=== PATIENT | male | born 1965 | race Two or more races ===

== ENCOUNTER 2025-07-22 15:18 | Inpatient (IN) | payer MEDICAID, OTHER ==
[~2025-07-22] VITALS: Ht 160 cm; Wt 73.9 kg
[~2025-07-22 15:18] MED LIST: MET25T PO
[2025-07-22 17:31] LABS: Hematocrit 46.0 % (41.0-53.0); Hemoglobin 16.2 g/dL (13.5-17.5); Mean Corpuscular Hemoglobin 34.4 pg (28.0-32.0); Mean Corpuscular Volume 97.4 fL (80.0-100.0); Nucleated Red Blood Cells % 0.0 %
--- NOTE | 2025-07-22 17:33 | ED.PDOC ---
GI ASSESSMENT HPI Comments 60 y/o M, presents to the ED for CC of abdominal pain. Patient states, he has been experiencing diffuse abdominal pain with associated bloody stools x3days. Patient denies faintness, weakness, nausea, or vomiting. Chief Complaint: Abdominal Pain Time Seen by MD: 17:20 Reviewed Notes: Nurses Notes, Medications, Allergies Allergies: Coded Allergies: NO KNOWN ALLERGIES (Unverified , 07/22/25) Information Source: Patient Mode of Arrival: Ambulatory Timing: Days Duration: Since onset Prehospital treatment: None Quality: None Vomitus: None Stool: Blood Streaked Severity: Moderate Recent: None Recent Hx of: None Pain Location: Diffuse Modifying Factors: Nothing Associated sign and symptoms: Abdominal Pain, Blood in Stool Past Medical History PAST MEDICAL HISTORY: Denies Surgical History: Denies all surgeries Family History Family History: Unknown Social History Smoker: Non-Smoker Alcohol: Denies ETOH Use Drugs: Denies Drug Use Lives In: Home Constitutional: denies: chills, diaphoresis, fatigue, fever, malaise, sweats, weakness, others EENTM: denies: blurred vision, double vision, ear bleeding, ear discharge, ear drainage, ear pain, ear ringing, eye pain, eye redness, hearing loss, mouth pain, mouth swelling, nasal discharge, nose bleeding, nose congestion, nose pain, photophobia, tearing, throat pain, throat swelling, voice changes, others Respiratory: denies: cough, hemoptysis, orthopnea, SOB at rest, shortness of breath, SOB with excertion, stridor, wheezing, others Cardiovascular: denies: chest pain, dizzy spells, diaphoresis, Dyspnea on exertion, edema, irregular heart beat, left arm pain, lightheadedness, palpitations, PND, syncope, others Gastrointestinal: reports: abdominal pain, others (bloody stools); denies: abdomen distended, blood streaked bowels, constipated, diarrhea, dysphagia, difficulty swallowing, hematemesis, melena, nausea, poor appetite, poor fluid intake, rectal bleeding, rectal pain, vomiting Genitourinary: denies: burning, dysuria, flank pain, frequency, hematuria, incontinence, penile discharge, penile sore, pain, testicle pain, testicle swelling, urgency, others Neurological: denies: dizziness, fainting, headache, left sided numbness, left sided weakness, numbness, paresthesia, pre-existing deficit, right sided numbness, right sided weakness, seizure, speech problems, tingling, tremors, weakness, others Musculoskeletal: denies: back pain, gout, joint pain, joint swelling, muscle pain, muscle stiffness, neck pain, others Integumetry: denies: bruises, change in color, change in hair/nails, dryness, laceration, lesions, lumps, rash, wounds, others Allergic/Immunocompromised: denies: Difficulty Healing, Frequent Infections, Hives, Itching, others Hematologic/Lymphatic: denies: anemia, blood clots, easy bleeding, easy bruising, swollen glands, others Endocrine: denies: excessive hunger, excessive sweating, excessive thirst, excessive urination, flushing, intolerance to cold, intolerance to heat, unexplained weight gain, unexplained weight loss, others Psychiatric: denies: anxiety, bipolar disorder, depression, hopeless, panic disorder, schizophrenia, sleepless, suicidal, others All Other Systems: Reviewed and Negative Physical Exam General Appearance: Moderate Distress HEENT: Normal ENT Inspection, Pharynx Normal, TMs Normal Neck: Full Range of Motion, Non-Tender, Normal, Normal Inspection Respiratory: Chest Non-Tender, Lungs Clear, No Accessory Muscle Use, No Respiratory Distress, Normal Breath Sounds Cardiovascular: No Edema, No JVD, No Murmur, No Gallop, Normal Peripheral Pulses, Regular Rate/Rhythm Breast Exam: Deferred Gastrointestinal: Distended Genitalia: Deferred Pelvic: Deferred Rectal: Deferred Extremities: No calf tenderness, Normal capillary refill, Normal inspection, Normal range of motion, Non-tender, No pedal edema Musculoskeletal : Apperance: Normal Neurologic: Alert, skip hoist engineer II-XII nml as Tested, No Motor Deficits, Normal Affect, Normal Mood, No Sensory Deficits Cerebellar Function: Normal Reflexes: Normal Skin: Dry, Normal Color, Warm Peripheral Pulses: 3+ Radial (R), 3+ Radial (L) Lymphatic: No Adenopathy Was a procedure done? Was a procedure done?: No GI differential Dx Differential Diagnosis: Constipation, Diverticular disease, Esophagitis, Gastritis/PUD, Gastroenteritis, GI hemorrhage, Inflammatory BD X-Ray, Labs, Meds, VS Vital Signs Date Time Temp Pulse Resp B/P (MAP) Pulse Ox O2 Delivery O2 Flow Rate FiO2 07/22/25 15:19 98.1 58 18 171/95 97 98.1 Lab Test 07/22/25 17:03 Range/Units White Blood Count 7.6 4.4-10.8 10^3/uL Red Blood Count 4.72 4.5-5.90 10^6/uL Hemoglobin 16.2 13.5-17.5 g/dL Hematocrit 46.0 41.0-53.0 % Mean Corpuscular Volume 97.4 80.0-100.0 fL Mean Corpuscular Hemoglobin 34.4 H 28.0-32.0 pg Mean Corpuscular Hemoglobin Concent 35.3 32.0-36.0 g/dL Red Cell Distribution Width 14.0 11.8-14.3 % Platelet Count 283 140-450 10^3/uL Mean Platelet Volume 8.0 6.9-10.8 fL Neutrophils (%) (Auto) 46.5 37.0-80.0 % Lymphocytes (%) (Auto) 37.7 10.0-50.0 % Monocytes (%) (Auto) 11.2 0.0-12.0 % Eosinophils (%) (Auto) 4.0 0.0-7.0 % Basophils (%) (Auto) 0.6 0.0-2.0 % Neutrophils # (Auto) 3.5 1.6-8.6 10 ^3/uL Lymphocytes # (Auto) 2.9 0.4-5.4 10 ^3/uL Monocytes # (Auto) 0.9 0-1.3 10 ^3/uL Eosinophils # (Auto) 0.3 0-0.8 10 ^3/uL Basophils # (Auto) 0 0-0.2 10 ^3/uL Nucleated Red Blood Cells 0.0 % Sodium Level Pending Potassium Level Pending Chloride Level Pending Carbon Dioxide Level Pending Anion Gap Pending Blood Urea Nitrogen Pending Creatinine Pending Glomerular Filtration Rate Calc Pending BUN/Creatinine Ratio Pending Serum Glucose Pending Calcium Level Pending Total Bilirubin Pending Aspartate Amino Transferase (AST) Pending Alanine Aminotransferase (ALT) Pending Alkaline Phosphatase Pending Total Protein Pending Albumin Pending Lipase Pending Patient alert. Complaining of abdominal pain. Vitals stable. Answering questions. States that he has been having blood in his stool. On examination he does have abdominal tenderness. WBC within normal limits. Hemoglobin within normal limits. Explained to the patient. Continue monitoring. Time of 1ST Reevaluation: 17:50 Reevaluation 1ST: Unchanged Patient Education/Counseling: Diagnosis, Treatment Family Education/Counseling: No Family Present SEPSIS Sepsis Screen Date sepsis recognized/suspect: Jul 22, 2025 Time Sepsis recognized/suspect: 1518 Recent Procedure: No On Antibiotic Therapy: No Respiratory Rate >20: No Heart Rate >90: No Temp<36 C (96.8 F) or >38.3 C: No SBP <90 or MAP <65 mmHG: No New Acute Mental Status Change: No Is the patient on CPAP, BIPAP,: No Physician Orders Comprehensive Metabolic Panel (07/22/25 16:49) Lipase (07/22/25 16:49) Urinalysis (07/22/25 16:49) Ct Ab Pel Wo Con-No Oral Or Iv (07/22/25 16:49) Vital Signs Date Time Temp Pulse Resp B/P (MAP) Pulse Ox O2 Delivery O2 Flow Rate FiO2 07/22/25 15:19 98.1 58 18 171/95 97 98.1 Laboratory Tests Test 07/22/25 17:03 White Blood Count 7.6 10^3/uL (4.4-10.8) Departure 1 Departure Time of Disposition: 17:38 Impression: Primary Impression: Acute abdominal pain Additional Impression: Non-specific colitis Disposition: ADMITTED INPATIENT Admit to: Med Surg Condition: Guarded Critical Care Note Critical Care Time?: No Stability Stability form required: No Heart Score Heart Score: Heart Score Response (Comments) Value History N/A 0 EKG N/A 0 Age N/A 0 Risk Factors N/A 0 Troponin N/A 0 Total 0 I personally scribed for MARCOS DAVALOS MD ([email or web address]) on 07/22/25 at 17:33. Electronically submitted by Whit Tucker [email or web address]). MARCOS DAVALOS MD Jul 22, 2025 17:33
[2025-07-22 17:48] LABS: Alanine Aminotransferase 36 U/L (7-40); Albumin 4.4 g/dL (3.2-4.8); Alkaline Phosphatase 98 U/L (46-116); Anion Gap 10 (5-15); BUN/Creatinine Ratio 14.6 (10.0-20.0); Blood Urea Nitrogen 15 mg/dL (9-23); Calcium 9.2 mg/dL (8.7-10.4); Carbon Dioxide 23 mmol/L (20-31); Chloride 105 mmol/L (98-107); Glucose 216 mg/dL (74-106); Lipase 55 U/L (12-53); Potassium 3.9 mmol/L (3.5-5.1); Sodium 138 mmol/L (136-145); Total Protein 7.5 g/dL (5.7-8.2)
[2025-07-22 17:49] LABS: Bilirubin, Total 1.1 mg/dL (0.2-1.0)
--- NOTE | 2025-07-22 17:49 | DVH ---
EXAM: CT CT AB PEL WO CON-NO ORAL OR IV History: colitis Comparison Study: None TECHNIQUE: Multidetector CT of the abdomen was performed from lung bases to pubic symphysis. Imaging was performed without IV contrast. Axial, coronal and sagittal multiplanar reformats were obtained from the axial data set by the technologist. Radiation Dose Information: CT Dose: CTDI volume is 9.4 mGy. Dose-length product is 513 mGy*cm FINDINGS: Evaluation of solid organs is limited due to lack of intravenous contrast use. FINDINGS: Lung Bases: No acute or significant lung base finding. Normal heart size. No pleural or pericardial effusion. Liver: The liver is normal in size. No focal lesions. Gallbladder and Biliary Tree: Unremarkable Spleen: Unremarkable Pancreas: The pancreas is grossly normal in appearance. Adrenal Glands: Unremarkable Kidneys: There is either a 1 cm right-sided renal vascular calcification or an nonobstructing calculus present. Bladder: Grossly unremarkable for degree of distention. Bowel: The stomach is grossly normal in appearance. Small bowel and colon are normal in caliber and distribution. The appendix is not visualized; however, no secondary findings of acute appendicitis identified. Ascites: Absent Lymphadenopathy: No mesenteric, retroperitoneal or periportal lymphadenopathy. Abdominal Wall and Mesentery: Unremarkable. Vasculature: The visualized abdominal aorta is normal in size and caliber. Evaluation of abdominal and pelvic vessels is limited due to lack of intravenous contrast. Pelvic Organs: Unremarkable Musculoskeletal: No aggressive focal bony lesions, acute fractures or dislocation. Soft tissues: Unremarkable IMPRESSION: 1. No acute intra-abdominal or pelvic disease. 2. There is either a 1 cm right-sided renal vascular calcification or a nonobstructing calculus. 3. Radiation optimization: All CT scans at this facility use at least one of these dose optimization techniques: automated exposure control mA and/or kV adjustment per patient size (includes targeted exams where dose is matched to clinical indication) or iterative reconstruction.
[2025-07-22 18:02] LABS: Urine Protein, UAD Negative (Negative)
[2025-07-22] MEDS: ONDANSETRON HCL 4 MG/2 ML VIAL IV ONE (18:54)
[2025-07-22] MEDS: MORPHINE SULFATE 4 MG/ML SYR/VIAL IV ONE (18:54)
[2025-07-22] MEDS ORDERED: ONDANSETRON HCL 4 MG/2 ML VIAL IV PRN (22:45)
--- NOTE | 2025-07-22 23:02 | DVH ---
CHEST RADIOGRAPH INDICATION: chest pain TECHNIQUE: Single frontal view of the chest was obtained COMPARISON: None FINDINGS: Lines and Tubes: None Lungs: Hazy density left lower lung field may represent a lingular airspace disease consider lateral chest firm film for further evaluation or CT chest. Pleura: No effusion. No pneumothorax. Cardiomediastinal contours: Unremarkable Bones: No acute osseous abnormality. IMPRESSION: 1. Increased density left lower lung field with some silhouetting of the left heart border. May represent lingular infiltrate. If consistent with clinical setting and patient's symptomatology consider lateral chest film or CT of the chest for further evaluation.
[2025-07-22 23:26] LABS: INR 0.95 (0.9-1.15); Partial Thromboplastin Time 28.5 SEC (24.5-34.5); Prothrombin Time 10.1 sec (9.3-11.8)
[2025-07-22 23:37] LABS: Amphetamine Screen, Urine Neg (NEGATIVE); Barbiturate Scree,Urine Neg (NEGATIVE); Benzodiazephine Screen, Urine Neg (NEGATIVE)
[2025-07-22 23:38] LABS: Cannabinoid Screen, Urine Pos (NEGATIVE); Cocaine Screen, Urine Neg (NEGATIVE); Opiate Scree,Urine Neg (NEGATIVE); Phencyclidine Screen, Urine Neg (NEGATIVE)
[2025-07-23] VITALS (8 sets, daily range): BP systolic 118–144; BP diastolic 70–83; PULSE 54–68; RESP 18–20; TEMP 97.4–98.6; O2SAT 96–98
--- NOTE | 2025-07-23 01:04 | DVHHPRES ---
History of Present Illness Resident Creating Document: JOE RANDOLPH RESIDENT History of Present Illness Patient is a 60-year-old male with past medical history of diabetes mellitus, hypertension, peptic ulcer disease, [place] status post 2 stents, CVA in April who came to the ED with chief complaints of diffuse abdominal pain which is 8/10 in intensity, nonradiating, increased with food intake, associated with increased burping Since 15 days and bright red blood in stool since 3 days. Patient denies any nausea, vomiting, diarrhea, constipation. Patient also complained of chest pain which she described as 8/10 in intensity, nonradiating, reproducible on palpation, associated with shortness of Breath which is on and off. patient says he uses 3 pillows to sleep. He also states that he has had a colonoscopy done last year for which 1 polyp was removed and was negative for cancer. Past surgical history: Denies Family history: Reviewed, noncontributory Personal history: Denies smoking, drinking, uses marijuana occasionally, lives with family home medications : amlodipine, aspirin, Plavix, metformin, metoprolol succinate, pantoprazole, rosuvastatin Allergic history: Denies Patient seen at bedside. Patient complains of reproducible chest pain, diffuse abdominal pain mostly in the left lower quadrant, nausea. Bedside ultrasound was performed. Review of Systems Constitutional: No: Fever, Chills, Sweats, Weakness, Malaise, Other Eyes: No: Pain, Vision change, Conjunctivae inflammation, Eyelid inflammation, Other, Redness ENT: No: Ear pain, Ear discharge, Nose pain, Nose discharge, Nose congestion, Mouth pain, Mouth swelling, Throat pain, Throat swelling, Other Respiratory: Shortness of breath; No: Cough, Dry, SOB with excertion, Wheezing, Hemoptysis, Pleuritic Pain, Sputum, Wheezing, Other Cardiovascular: Chest Pain; No: Palpitations, Orthopnea, Paroxysmal Noc. Dyspnea, Edema, Lt Headedness, Other Gastrointestinal: Nausea, Abdominal Pain; No: Vomiting, Diarrhea, Constipation, Melena, Hematochezia, Other Genitourinary: No Dysuria, No Frequency, No Incontinence, No Hematuria, No Retention, No Other Musculoskeletal: No: other, neck pain, shoulder pain, arm pain, back pain, hand pain, leg pain, foot pain Skin: No: Rash, Lesions, Jaundice, Bruising, Other Neurological: No: Weakness, Numbness, Incoordination, Change in speech, Confus ion, Seizures, Other Allergies: Coded Allergies: NO KNOWN ALLERGIES (Unverified , 07/22/25) Medications Current Medications Medications Dose Ordered Sig/Sarai Route Start Time Stop Time Status Last Admin Dose Admin Ondansetron HCl 4 mg Q4HP PRN IV 07/22/25 22:45 Enoxaparin Sodium 40 mg DAILY SC 07/23/25 10:00 Acetaminophen 650 mg Q6HR PO 07/23/25 00:00 Exam Vital Signs Vital Signs Date Time Temp Pulse Resp B/P (MAP) Pulse Ox O2 Delivery O2 Flow Rate FiO2 07/22/25 22:28 51 07/22/25 18:54 18 149/103 07/22/25 18:33 97.3 97 97.3 Exam General Appearance: Alert, Oriented X3, Cooperative, No acute distress HEENT: Atraumatic, PERRLA, EOMI, Mucous membrane moist/pink Respiratory: Clear to auscultation, Normal air movement Cardiovascular: Regular rate, Normal S1, Normal S2, No murmurs, chest wall tenderness present on palpation Abdominal: diffuse abdominal tenderness, more on the right lower quadrant Extremities: trace bilateral pedal edema Skin: No rashes, No breakdown, No significant lesion Neuro: Normal gait, Normal speech, Strength at 5/5 X4 ext, Normal tone, Sensation intact, Cranial nerves 3-12 NL, Reflexes 2+ Psych/Mental Status: Mental status NL, Mood NL Labs/Xrays Labs Test 07/23/25 00:24 07/22/25 21:56 07/22/25 17:13 07/22/25 17:12 Range/Units Prothrombin Time 10.1 9.3-11.8 sec Prothrombin Time INR 0.95 0.9-1.15 Activated Partial Thromboplast Time 28.5 24.5-34.5 SEC B-Type Natriuretic Peptide 12.32 0-100 pg/mL Thyroid Stimulating Hormone (TSH) 2.80 0.55-4.78 uIU/mL Urine Opiates Screen Neg NEGATIVE Urine Fentanyl Screen Neg NEGATIVE Urine Barbiturates Screen Neg NEGATIVE Urine Phencyclidine Screen Neg NEGATIVE Urine Amphetamines Screen Neg NEGATIVE Urine Benzodiazepines Screen Neg NEGATIVE Urine Cocaine Screen Neg NEGATIVE Urine Cannabinoids Screen Pos NEGATIVE Urine Color Yellow Yellow Urine Clarity Clear Clear Urine pH 5.5 5.0-9.0 Urine Specific [place] 1.024 1.001-1.035 Urine Protein Negative Negative Urine Ketones Negative Negative Urine Blood 1+ H Negative /uL Urine Nitrite Negative Negative Urine Bilirubin Negative Negative Urine Urobilinogen Normal Negative mg/dL Urine Leukocyte Esterase Negative Negative /uL Urine RBC <1 0 - 3 /hpf Urine Microscopic WBC < 1 0-3 /HPF Urine Squamous Epithelial Cells Few <5 /hpf Urine Bacteria None seen None Seen /hpf Urine Mucus Few None Seen Urine Glucose 3+ H Normal mg/dL Test 07/22/25 17:03 Range/Units White Blood Count 7.6 4.4-10.8 10^3/uL Red Blood Count 4.72 4.5-5.90 10^6/uL Hemoglobin 16.2 13.5-17.5 g/dL Hematocrit 46.0 41.0-53.0 % Mean Corpuscular Volume 97.4 80.0-100.0 fL Mean Corpuscular Hemoglobin 34.4 H 28.0-32.0 pg Mean Corpuscular Hemoglobin Concent 35.3 32.0-36.0 g/dL Red Cell Distribution Width 14.0 11.8-14.3 % Platelet Count 283 140-450 10^3/uL Mean Platelet Volume 8.0 6.9-10.8 fL Neutrophils (%) (Auto) 46.5 37.0-80.0 % Lymphocytes (%) (Auto) 37.7 10.0-50.0 % Monocytes (%) (Auto) 11.2 0.0-12.0 % Eosinophils (%) (Auto) 4.0 0.0-7.0 % Basophils (%) (Auto) 0.6 0.0-2.0 % Neutrophils # (Auto) 3.5 1.6-8.6 10 ^3/uL Lymphocytes # (Auto) 2.9 0.4-5.4 10 ^3/uL Monocytes # (Auto) 0.9 0-1.3 10 ^3/uL Eosinophils # (Auto) 0.3 0-0.8 10 ^3/uL Basophils # (Auto) 0 0-0.2 10 ^3/uL Nucleated Red Blood Cells 0.0 % Sodium Level 138 136-145 mmol/L Potassium Level 3.9 3.5-5.1 mmol/L Chloride Level 105 98-107 mmol/L Carbon Dioxide Level 23 20-31 mmol/L Anion Gap 10 5-15 Blood Urea Nitrogen 15 9-23 mg/dL Creatinine 1.03 0.700-1.30 mg/dL Glomerular Filtration Rate Calc 82 >90 mL/min BUN/Creatinine Ratio 14.6 10.0-20.0 Serum Glucose 216 H 74-106 mg/dL Calcium Level 9.2 8.7-10.4 mg/dL Total Bilirubin 1.1 H 0.2-1.0 mg/dL Aspartate Amino Transferase (AST) 24 13-40 U/L Alanine Aminotransferase (ALT) 36 7-40 U/L Alkaline Phosphatase 98 46-116 U/L Total Protein 7.5 5.7-8.2 g/dL Albumin 4.4 3.2-4.8 g/dL Lipase 55 H 12-53 U/L SEPSIS Sepsis Screen Date sepsis recognized/suspect: Jul 22, 2025 Time Sepsis recognized/suspect: 1518 Recent Procedure: No On Antibiotic Therapy: No Respiratory Rate >20: No Heart Rate >90: No Temp<36 C (96.8 F) or >38.3 C: No SBP <90 or MAP <65 mmHG: No New Acute Mental Status Change: No Is the patient on CPAP, BIPAP,: No Physician Orders Ct Ab Pel Wo Con-No Oral Or Iv (07/22/25 16:49) Electrocardigram (07/22/25 21:49) Troponin-I Hs (07/23/25 00:49) Point Of Care Scan (07/22/25 21:59) Admit (07/22/25 22:36) Ondansetron Hcl (Zofran) (07/22/25 22:45) Enoxaparin Sodium (Lovenox) (07/23/25 10:00) Complete Blood Count (07/23/25 04:00) Comprehensive Metabolic Panel (07/23/25 04:00) Cardiac Diet-2gna,Lofat,Lochol (07/23/25 Breakfast) Echo 2d Mode Cardiac Dop (07/22/25 22:36) Condition: Serious (07/22/25 22:36) Acetaminophen Tablet (Tylenol Tablet) (07/23/25 00:00) Bedrest With Bathroom Privileg (07/22/25 22:36) Oxygen By Nasal Cannula (07/22/25 22:36) Stat Ekg For Chest Pain (07/22/25 22:36) Notify Md Of Changes From Base (07/22/25 22:36) Condominium Manager For 24 Hours (07/22/25 22:36) Emergency Dysrhythmia Protocol (07/22/25 22:36) Rhythm Strips Once Every Shift (07/22/25 22:36) Chest Xray 1 View (07/22/25 22:36) Stool Occult Blood (07/22/25 22:41) Vital Signs Date Time Temp Pulse Resp B/P (MAP) Pulse Ox O2 Delivery O2 Flow Rate FiO2 07/22/25 22:28 51 07/22/25 18:54 79 18 149/103 07/22/25 18:33 97.3 84 16 148/113 (125) 97 97.3 Laboratory Tests Test 07/22/25 17:03 White Blood Count 7.6 10^3/uL (4.4-10.8) Medications Medications Dose Ordered Sig/Sarai Route Start Time Stop Time Status Last Admin Dose Admin Morphine Sulfate 4 mg ONCE ONCE IV 07/22/25 17:00 07/22/25 17:01 DC 07/22/25 18:54 4 MG Ondansetron HCl 4 mg ONCE ONCE IV 07/22/25 17:00 07/22/25 17:01 DC 07/22/25 18:54 4 MG Assessment/Plan Assessment/Plan Intractable abdominal pain due to gastritis Chest pain likely musculoskeletal ? Heart failure - abdominal CT scan showed No acute intra-abdominal or pelvic disease. There is either a 1 cm right-sided renal vascular calcification or a nonobstructing calculus. - IV fluids - check stool occult blood - check echo - EKG showed sinus bradycardia Diabetes mellitus Lantus 10, mild insulin sliding scale Hypertension -resume home meds Dyslipidemia -resume home med Cannabinoid use disorder Patient counseled on cessation of marijuana for 18 minutes Morbid obesity BMI 28.8 Patient counseled on lifestyle modifications, diet, exercise for 18 minutes PPI prophylaxis: Protonix DVT prophylaxis: Lovenox Diet: Cardiac diet Goals of care discussed with patient for 27 mins: Full code Case discussed with Dr. Manjarrez Plan discussed with: Patient My Orders Orders - JOE RANDOLPH RESIDENT Procedure Category Date Status Time Admit ADMIT 07/22/25 Transmitted 22:36 Ondansetron Hcl PHA 07/22/25 In Process (Zofran) 22:45 Enoxaparin Sodium PHA 07/23/25 In Process (Lovenox) 10:00 Complete Blood Count LAB 07/23/25 Logged 04:00 Comprehensive LAB 07/23/25 Logged Metabolic Panel 04:00 Cardiac DIET 07/23/25 Transmitted Diet-2gna,Lofat,Lochol Breakfast Echo 2d Mode Cardiac US 07/22/25 Logged DOP 22:36 Condition: Serious JORDYN 07/22/25 In Process 22:36 Acetaminophen Tablet PHA 07/23/25 In Process (Tylenol Tablet) 00:00 Bedrest With Bathroom JORDYN 07/22/25 In Process Privileg 22:36 Oxygen By Nasal RT 07/22/25 Transmitted Cannula 22:36 Stat Ekg For Chest JORDYN 07/22/25 In Process Pain 22:36 Notify Of Changes [facility] 07/22/25 In Process From Base 22:36 Condominium Manager For [facility] 07/22/25 In Process 24 Hours 22:36 Emergency Dysrhythmia [facility] 07/22/25 In Process Protocol 22:36 Rhythm Strips Once [facility] 07/22/25 In Process Every Shift 22:36 Chest Xray 1 View XY 07/22/25 Resulted 22:36 Stool Occult Blood LAB 07/22/25 Logged 22:41 Visit Coding STANDARD RES Billing Provider: ALDA MANJARREZ MD Date of Service if different f: Jul 22, 2025 Common Visit Codes: 75983-TIAFJEL INP/OBS CARE (HIGH) Secondary Visit Codes: 85320-HIRAPBDA CARE PLAN 30 MINUTES JOE RANDOLPH Jul 23, 2025 01:04
[2025-07-23] MEDS ORDERED: METF-370 PO (01:05)
[2025-07-23] MEDS ORDERED: AMLO1TAB22 PO (01:05)
[2025-07-23] MEDS ORDERED: PANT40TA2 PO (01:05)
[2025-07-23] MEDS ORDERED: METO25TA93 PO (01:05)
[2025-07-23] MEDS ORDERED: ROSU40TA81 PO (01:05)
[2025-07-23] MEDS ORDERED: ASPI-498 PO (01:05)
[2025-07-23] MEDS ORDERED: CLOP75TA70 PO (01:05)
[2025-07-23] MEDS: ACETAMINOPHEN 325 MG TAB PO SCH (01:07)
[2025-07-23] MEDS: SPIRONOLACTONE 25 MG TAB PO ONE (02:00)
[2025-07-23 04:19] LABS: Hematocrit 43.4 % (41.0-53.0); Hemoglobin 15.4 g/dL (13.5-17.5); Mean Corpuscular Hemoglobin 34.3 pg (28.0-32.0); Mean Corpuscular Volume 96.8 fL (80.0-100.0); Nucleated Red Blood Cells % 0.2 %
[2025-07-23 04:40] LABS: Alanine Aminotransferase 30 U/L (7-40); Albumin 4.0 g/dL (3.2-4.8); Alkaline Phosphatase 89 U/L (46-116); Anion Gap 10 (5-15); Calcium 9.1 mg/dL (8.7-10.4); Carbon Dioxide 23 mmol/L (20-31); Chloride 106 mmol/L (98-107); Potassium 3.7 mmol/L (3.5-5.1); Sodium 139 mmol/L (136-145); Total Protein 6.7 g/dL (5.7-8.2)
[2025-07-23 04:41] LABS: BUN/Creatinine Ratio 16.3 (10.0-20.0); Blood Urea Nitrogen 16 mg/dL (9-23)
[2025-07-23 04:46] LABS: Glucose 237 mg/dL (74-106)
[2025-07-23 04:47] LABS: Bilirubin, Total 1.0 mg/dL (0.2-1.0)
[2025-07-23] MEDS: FUROSEMIDE 40 MG/4 ML VIAL IV ONE (05:48)
[2025-07-23] MEDS: LISINOPRIL 5 MG TAB PO ONE (05:48)
[2025-07-23] MEDS: PANTOPRAZOLE 40 MG TAB PO SCH (05:49)
[2025-07-23] MEDS ORDERED: DEXTROSE (50%) 50ML SYRG IV PRN ×2 (06:00→10:15)
[2025-07-23] MEDS: SIMETHICONE 80 MG CHEWABLE TABLET PO ONE (06:34)
--- NOTE | 2025-07-23 06:53 | ECG ---
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
[2025-07-23] MEDS: InsuLIN REG 1unit/0.01ml Soln (100units/ml) SC SCH ×2 (07:18→13:12)
[2025-07-23] MEDS: ACCU-CHEK COMFORT CURVE STRIP VI SCH ×2 (07:18→12:00)
[2025-07-23] MEDS ORDERED: ENOXAPARIN SOD 40 MG/0.4 ML SYRINGE SC SCH (10:00)
[2025-07-23] MEDS: ENOXAPARIN SOD 40 MG/0.4 ML SYRINGE SC SCH (13:10)
[2025-07-23] MEDS: ASPirin-EC 81 mg tab PO SCH (13:10)
[2025-07-23] MEDS: CLOPIDOGREL BISULFATE 75 MG TAB PO SCH (13:10)
[2025-07-23] MEDS: SODIUM CHLORIDE 0.9% 1,000 ML IV SCH (13:10)
--- NOTE | 2025-07-23 13:22 | DVHPNRES ---
Progress Note Date Seen: Jul 23, 2025 Resident Creating Document: JIM ARRIAGA RESIDENT Medical Necessity Reason Pt with a Central, PICC or Fol: No (RN) Subjective Review of Systems Mr Marques Rangel, a 60-year-old male with past medical history of [id number] diabetes mellitus, hypertension compliance with medications, peptic ulcer disease, myocardial infarction with right coronary artery stent placed, stroke with residual left-sided weakness presented to the ED with the complaints of vomiting every morning associated with abdominal pain since last 1 month. Abdominal pain mostly on the right and left lower quadrants and radiates to whole abdomen. He reports having occasional bright red stools. He has done colonoscopy 2 years ago in [place] with polyp removed, no other significant abnormality detected. He also reports having burning chest pain, which he attributes to GERD. Denies any burning sensation during urination, however he reports having urinary frequency. He denied any constipation. He denies any chest pain, shortness of breath, fever, weight loss, recent travel history or sick contacts or any other complaints. He possibly had done an angiogram in [facility], [place], he can not recall the results. Past medical history: As above Past surgical history: as above Medications: Amlodipine, Plavix, metformin, metoprolol succinate, pantoprazole, rosuvastatin Patient was seen and examined at bedside. Overnight events were reviewed. No other new complaints reported except HPI. Objective vital signs Vital Sign Date Time Temp Pulse Resp B/P (MAP) Pulse Ox O2 Delivery O2 Flow Rate FiO2 07/23/25 05:48 136/70 07/23/25 05:00 98.1 54 18 97 98.1 07/23/25 00:43 Room Air* 0 21 Total Intake and Output 07/22/25 07/22/25 07/23/25 15:00 23:00 07:00 Intake Total 240 ml Balance 240 ml medications Current Medications Medications Dose Ordered Sig/Sarai Route Start Time Stop Time Status Last Admin Dose Admin Ondansetron HCl 4 mg Q4HP PRN IV 07/22/25 22:45 Enoxaparin Sodium 40 mg DAILY SC 07/23/25 10:00 07/23/25 13:10 40 MG Acetaminophen 650 mg Q6HR PO 07/23/25 00:00 07/23/25 13:10 650 MG Acetaminophen/ Hydrocodone Bitart 1 tab Q6HPRN PRN PO 07/23/25 02:00 Pantoprazole Sodium 40 mg DAILY@0600 PO 07/23/25 06:00 07/23/25 05:49 40 MG Furosemide 40 mg DAILY IV 07/24/25 10:00 Atorvastatin Calcium 40 mg HS PO 07/23/25 22:00 Aspirin 81 mg DAILY PO 07/23/25 10:00 07/23/25 13:10 81 MG Clopidogrel Bisulfate 75 mg DAILY PO 07/23/25 10:00 07/23/25 13:10 75 MG Insulin Glargine 10 units HS SC 07/23/25 22:00 Dimethicone 40 mg BID PO 07/23/25 22:00 Ceftriaxone Sodium 50 ml @ 100 mls/hr DAILY@09 IV 07/24/25 09:00 Azithromycin 250 ml @ 125 mls/hr DAILY IV 07/24/25 10:00 Sodium Chloride 1,000 ml @ 100 mls/hr Q10H IV 07/23/25 10:15 07/23/25 13:10 100 MLS/HR Diagnostic Test (Pha) 1 strip Q6HR 07/23/25 12:00 07/23/25 12:00 1 STRIP Insulin Human Regular Q6HR SC 07/23/25 12:00 07/23/25 13:12 4 UNITS Dextrose 50 ml UD PRN IV 07/23/25 10:15 Examination Pt is lying on bed General Appearance: Alert, Oriented X3, Cooperative, Mild distress HEENT: Atraumatic, Mucous membranes moist/pink Respiratory: Clear to auscultation, Normal air movement, No added sounds Cardiovascular: Regular rate, Normal S1, Normal S2, No murmurs Abdominal/ : Active bowel sounds, Soft, no distention, lower abdominal tenderness Extremities: No edema, Normal pulses, No tenderness/swelling Skin: No Significant rash, except past surgical scars Neuro: Normal speech, sensorimotor deficits none Psych/Mental Status: Mental status NL, Mood NL Nurse was there as property custodian during examination laboratory and microbiology Laboratory Tests 07/23/25 03:23 Test 07/23/25 03:23 Range/Units Serum Glucose 237 H 74-106 mg/dL Labs and/or images reviewed: Labs reviewed by me, Image(s) reviewed by me Problem List/Assessment/Plan Problem List/Assessment/Plan Cyclic vomiting syndrome -NPO -avoid cannabinoids -IV fluid -ondansetron -CT abdomen pelvis: No acute findings -lipase negative GI bleeding Stool FOBT sent Colonoscopy 2 years ago negative for malignancy as per patient. Chest pain ruled out ACS Hypertensive heart disease EKG: No acute ischemic changes troponin x3 negative Lisinopril ECHO ordered, pending results Uncontrolled type 2 diabetes mellitus Insulin Lantus and insulin sliding scale History of [place] with RCA stent Aspirin Atorvastatin Spironolactone GI prophylaxis: Pantoprazole DVT prophylaxis: SCDs Diet: NPO Goals of care discussed with the patient for more than 27 minutes: Full code status Case discussed with Dr. Stone , patient and RN Plan discussed with: Patient, Other (RN) Visit Coding STANDARD RES Billing Provider: DONIS STONE MD Date of Service if different f: Jul 23, 2025 Common Visit Codes: [id number] INP/OBS CARE(HIGH) JIM ARRIAGA RESIDENT Jul 23, 2025 13:22 DONIS STONE MD Jul 23, 2025 23:58
--- NOTE | 2025-07-23 18:57 | DVHSR ---
APPROVED REPORT EXAM: Two-dimensional and M-mode echocardiogram with Doppler and color Doppler. Blood Pressure: 136/70 mmHg INDICATION Chest Pain BRIEF HISTORY CAD RISK FACTORS Height: 5'3", Weight: 162 DIMENSIONS LVDd 4.9 (3.8-5.7cm) LA (2D) 3.8 (1.9-4.0cm) Aortic Root 3.4 (2.0-3.7cm) LVDs 3.3 (2.5-4.0cm) LA (MM) (1.9-4.0cm) Aortic Cusp Exc 1.7 (1.5-2.0cm) EF (%) 55.0 (55-70%) Rt. Atrium 3.7 (1.9-4.0cm) Asc. Aorta cm IVSd 1.1 (0.7-1.1cm) RV (D) (1.8-2.4cm) PWd 1.0 (0.7-1.1cm) Mitral Valve Mitral Mitral Stenosis E wave 0.66m/s MV Mean GR. mmHg A wave 0.86m/s MV Peak GR. mmHg E/A ratio 0.8 2D MVA cm2 DECEL Time 198ms PRESS 1/2 Time ms Aortic Valve Aortic Valve Aortic Stenosis V1 1.00m/s AO Mean GR. 4mmHg V2 1.55m/s AO Peak GR. 10mmHg LVOT Diameter 2.0 (1.8-2.4cm) Doppler ARIADNA 2.03cm2 Pulmonic Valve V2 1.03m/s Other Information Technically limited study due to body habitus. Conclusion Left ventricle: The cavity size is normal. There is mild concentric left ventricular hypertrophy. Systolic function is normal. The estimated ejection fraction is 55-60%. There is grade 1 diastolic dysfunction Right ventricle: Systolic function is normal Mitral valve: There is no stenosis. There is trace regurgitation. Aortic valve: The valve is tricuspid. There is no stenosis or regurgitation. Tricuspid valve: There is no stenosis. There is trace regurgitation. Pericardium: There is no pericardial effusion. Inferior vena cava: The vessel is normal in size. There is normal respiratory phasic variation consistent with a right atrial pressure of3 mm Hg
[2025-07-23] MEDS: ATORVASTATIN 20 MG TAB PO SCH (21:38)
[2025-07-23] MEDS: INSULIN LANTUS (GLARGINE) 1 /0.01ml (100units/ml) SC SCH (21:40)
[2025-07-23] MEDS: SIMETHICONE 80 MG CHEWABLE TABLET PO SCH (23:45)
[2025-07-24 08:00] VITALS: PULSE 52; RESP 20; O2SAT 98
[2025-07-24 09:00] VITALS: BP 162/81; PULSE 52; RESP 18; TEMP 98.3; O2SAT 98
[2025-07-24] MEDS ORDERED: SPIRONOLACTONE 25 MG TAB PO SCH (10:00)
[2025-07-24] MEDS ORDERED: LISINOPRIL 5 MG TAB PO SCH (10:00)
[2025-07-24] MEDS: FUROSEMIDE 40 MG/4 ML VIAL IV SCH (11:37)
[2025-07-24 12:16] LABS: Hematocrit 48.5 % (41.0-53.0); Hemoglobin 16.9 g/dL (13.5-17.5); Mean Corpuscular Hemoglobin 33.7 pg (28.0-32.0); Mean Corpuscular Volume 96.9 fL (80.0-100.0); Nucleated Red Blood Cells % 0.1 %
[2025-07-24 12:40] LABS: Alanine Aminotransferase 31 U/L (7-40); Albumin 4.6 g/dL (3.2-4.8); Alkaline Phosphatase 90 U/L (46-116); Anion Gap 9 (5-15); BUN/Creatinine Ratio 14.0 (10.0-20.0); Bilirubin, Total 1.4 mg/dL (0.2-1.0); Blood Urea Nitrogen 13 mg/dL (9-23); Calcium 9.4 mg/dL (8.7-10.4); Carbon Dioxide 26 mmol/L (20-31); Chloride 107 mmol/L (98-107); Glucose 137 mg/dL (74-106); Potassium 3.7 mmol/L (3.5-5.1); Sodium 142 mmol/L (136-145); Total Protein 7.4 g/dL (5.7-8.2)
[2025-07-24] MEDS: AZITHROMYCIN 500MG/250ML 250 ML IV SCH (14:30)
--- NOTE | 2025-07-24 14:40 | DVHINCON2 ---
GI Consult Consult Note GI consult note Date of Consultation: 07/24/2025 Chief Complaint: Intractable vomiting with history of gastritis Referring Physician: Dr. Garza H&P: 60-year-old male with past medical history of diabetes mellitus, hypertension, peptic ulcer disease, NC status post two stents, CVA in April admitted with complains of lower abdominal pain which is worsening with any food intake and also has increased burping. Patient admits to having these symptoms for the past 10 days, and had one episode of bright red blood in stools for three days. No nausea or vomiting at this time. Denies hematemesis. Status post colonoscopy one year ago with polyp removed Patient also complaining of chest pain Patient takes Plavix and aspirin. And is on Lovenox also Past Medical History: Dm, HTN, PUD, NC, CVA Past Surgical History: Denies Social History: NO smoking, drinking ETOH and use of illegal drugs. Family History: Noncontributory Review of Systems: Constitutional: no fever, chill, weight loss HEENT: no eye pain, no hearing loss, no oral lesion, no scleral icterus Heart: no chest pain, no chest pressure Lung: no cough, no dyspnea with exertion Abdomen: see HPI Physical exam: General: NAD, AAOX3 Chest: lung agudelo clear to auscultation Heart: RRR, no murmur Abdomen: non-distended, no tenderness to palpation, +BS Labs: Labs Test 07/24/25 11:51 07/24/25 11:46 07/23/25 13:33 07/23/25 03:23 Range/Units POC Glucose 139 H 70-106 mg/dl White Blood Count 8.0 4.4-10.8 10^3/uL Red Blood Count 5.01 4.5-5.90 10^6/uL Hemoglobin 16.9 13.5-17.5 g/dL Hematocrit 48.5 # 41.0-53.0 % Mean Corpuscular Volume 96.9 80.0-100.0 fL Mean Corpuscular Hemoglobin 33.7 H 28.0-32.0 pg Mean Corpuscular Hemoglobin Concent 34.8 32.0-36.0 g/dL Red Cell Distribution Width 14.0 11.8-14.3 % Platelet Count 276 140-450 10^3/uL Mean Platelet Volume 7.9 6.9-10.8 fL Neutrophils (%) (Auto) 54.6 37.0-80.0 % Lymphocytes (%) (Auto) 33.2 10.0-50.0 % Monocytes (%) (Auto) 8.9 0.0-12.0 % Eosinophils (%) (Auto) 2.9 0.0-7.0 % Basophils (%) (Auto) 0.4 0.0-2.0 % Neutrophils # (Auto) 4.3 1.6-8.6 10 ^3/uL Lymphocytes # (Auto) 2.6 0.4-5.4 10 ^3/uL Monocytes # (Auto) 0.7 0-1.3 10 ^3/uL Eosinophils # (Auto) 0.2 0-0.8 10 ^3/uL Basophils # (Auto) 0 0-0.2 10 ^3/uL Nucleated Red Blood Cells 0.1 % Sodium Level 142 136-145 mmol/L Potassium Level 3.7 3.5-5.1 mmol/L Chloride Level 107 98-107 mmol/L Carbon Dioxide Level 26 20-31 mmol/L Anion Gap 9 5-15 Blood Urea Nitrogen 13 9-23 mg/dL Creatinine 0.93 0.700-1.30 mg/dL Glomerular Filtration Rate Calc 93 >90 mL/min BUN/Creatinine Ratio 14.0 10.0-20.0 Serum Glucose 137 #H 74-106 mg/dL Calcium Level 9.4 8.7-10.4 mg/dL Total Bilirubin 1.4 H 0.2-1.0 mg/dL Aspartate Amino Transferase (AST) 23 13-40 U/L Alanine Aminotransferase (ALT) 31 7-40 U/L Alkaline Phosphatase 90 46-116 U/L Total Protein 7.4 5.7-8.2 g/dL Albumin 4.6 3.2-4.8 g/dL Stool Occult Blood Negative Negative Stool Occult Blood Sample #3 Negative Hemoglobin A1c 7.9 H <5.7 % A1C Test 07/23/25 00:24 07/22/25 21:56 07/22/25 17:13 07/22/25 17:12 Range/Units Troponin I High Sensitivity 12 </=54 ng/L Prothrombin Time 10.1 9.3-11.8 sec Prothrombin Time INR 0.95 0.9-1.15 Activated Partial Thromboplast Time 28.5 24.5-34.5 SEC B-Type Natriuretic Peptide 12.32 0-100 pg/mL Thyroid Stimulating Hormone (TSH) 2.80 0.55-4.78 uIU/mL Urine Opiates Screen Neg NEGATIVE Urine Fentanyl Screen Neg NEGATIVE Urine Barbiturates Screen Neg NEGATIVE Urine Phencyclidine Screen Neg NEGATIVE Urine Amphetamines Screen Neg NEGATIVE Urine Benzodiazepines Screen Neg NEGATIVE Urine Cocaine Screen Neg NEGATIVE Urine Cannabinoids Screen Pos NEGATIVE Urine Color Yellow Yellow Urine Clarity Clear Clear Urine pH 5.5 5.0-9.0 Urine Specific [place] 1.024 1.001-1.035 Urine Protein Negative Negative Urine Ketones Negative Negative Urine Blood 1+ H Negative /uL Urine Nitrite Negative Negative Urine Bilirubin Negative Negative Urine Urobilinogen Normal Negative mg/dL Urine Leukocyte Esterase Negative Negative /uL Urine RBC <1 0 - 3 /hpf Urine Microscopic WBC < 1 0-3 /HPF Urine Squamous Epithelial Cells Few <5 /hpf Urine Bacteria None seen None Seen /hpf Urine Mucus Few None Seen Urine Glucose 3+ H Normal mg/dL Test 07/22/25 17:03 Range/Units Lipase 55 H 12-53 U/L Imaging: CT abdomen pelvis IMPRESSION: 1. No acute intra-abdominal or pelvic disease. 2. There is either a 1 cm right-sided renal vascular calcification or a nonobstructing calculus. Assessment: Abdominal pain Vomiting Chest pain Plan: Discussed with Dr. Jo Symptomatic treatment recommended at this time with Protonix and Zofran Full liquid diet advance as tolerated We will continue to monitor patient Plan discussed with patient and RN You for this consult Date of Service: Jul 24, 2025 Billing Provider: CRYSTAL SPAULDING Common Visit Codes: CONSULT ONLY Consultation Codes: [id number] CONSULT <60MIN CRYSTAL SPAULDING Jul 24, 2025 14:39
--- NOTE | 2025-07-24 14:57 | DVHPNRES ---
Progress Note Date Seen: Jul 24, 2025 Resident Creating Document: JIM ARRIAGA RESIDENT Medical Necessity Reason Pt with a Central, PICC or Fol: No (RN) Subjective Review of Systems Mr Marques Rangel, a 60-year-old male with past medical history of [id number] diabetes mellitus, hypertension compliance with medications, peptic ulcer disease, myocardial infarction with right coronary artery stent placed, stroke with residual left-sided weakness presented to the ED with the complaints of vomiting every morning associated with abdominal pain since last 1 month. Abdominal pain mostly on the right and left lower quadrants and radiates to whole abdomen. He reports having occasional bright red stools. He has done colonoscopy 2 years ago in [place] with polyp removed, no other significant abnormality detected. He also reports having burning chest pain, which he attributes to GERD. Denies any burning sensation during urination, however he reports having urinary frequency. He denied any constipation. He denies any chest pain, shortness of breath, fever, weight loss, recent travel history or sick contacts or any other complaints. He possibly had done an angiogram in [facility], he can not recall the results. Past medical history: As above Past surgical history: as above Medications: Amlodipine, Plavix, metformin, metoprolol succinate, pantoprazole, rosuvastatin 07/24/2025: Patient was seen and examined at bedside. Overnight events were reviewed. The patient wanted to understand the treatment and plan, we thoroughly explained the treatment and plan with the patient, daughter and other family members over phone. He reports improvement in his symptoms.No new complaints reported. Objective vital signs Vital Sign Date Time Temp Pulse Resp B/P (MAP) Pulse Ox O2 Delivery O2 Flow Rate FiO2 07/24/25 11:37 162/81 07/24/25 09:00 98.3 52 18 98 98.3 07/24/25 08:00 Room Air* 0 21 Total Intake and Output 07/23/25 07/23/25 07/24/25 15:00 23:00 07:00 Intake Total 1150 ml Balance 1150 ml medications Current Medications Medications Dose Ordered Sig/Sarai Route Start Time Stop Time Status Last Admin Dose Admin Ondansetron HCl 4 mg Q4HP PRN IV 07/22/25 22:45 Enoxaparin Sodium 40 mg DAILY SC 07/23/25 10:00 07/24/25 11:39 40 MG Acetaminophen 650 mg Q6HR PO 07/23/25 00:00 07/24/25 11:41 650 MG Acetaminophen/ Hydrocodone Bitart 1 tab Q6HPRN PRN PO 07/23/25 02:00 Pantoprazole Sodium 40 mg DAILY@0600 PO 07/23/25 06:00 07/24/25 06:14 40 MG Furosemide 40 mg DAILY IV 07/24/25 10:00 07/24/25 11:37 40 MG Atorvastatin Calcium 40 mg HS PO 07/23/25 22:00 07/23/25 21:38 40 MG Aspirin 81 mg DAILY PO 07/23/25 10:00 07/24/25 11:38 81 MG Clopidogrel Bisulfate 75 mg DAILY PO 07/23/25 10:00 07/24/25 11:38 75 MG Insulin Glargine 10 units HS SC 07/23/25 22:00 07/23/25 21:40 10 UNITS Dimethicone 40 mg BID PO 07/23/25 22:00 07/24/25 11:37 40 MG Ceftriaxone Sodium 50 ml @ 100 mls/hr DAILY@09 IV 07/24/25 09:00 07/24/25 11:36 100 MLS/HR Azithromycin 250 ml @ 125 mls/hr DAILY IV 07/24/25 10:00 07/24/25 14:30 125 MLS/HR Sodium Chloride 1,000 ml @ 100 mls/hr Q10H IV 07/23/25 10:15 07/24/25 02:14 100 MLS/HR Diagnostic Test (Pha) 1 strip Q6HR 07/23/25 12:00 07/24/25 12:00 1 STRIP Insulin Human Regular Q6HR SC 07/23/25 12:00 07/23/25 23:54 6 UNITS Dextrose 50 ml UD PRN IV 07/23/25 10:15 Examination Examination Pt is lying on bed General Appearance: Alert, Oriented X3, Cooperative, Mild distress HEENT: Atraumatic, Mucous membranes moist/pink Respiratory: Clear to auscultation, Normal air movement, No added sounds Cardiovascular: Regular rate, Normal S1, Normal S2, No murmurs Abdominal/ : Active bowel sounds, Soft, no distention, lower abdominal tenderness Extremities: No edema, Normal pulses, No tenderness/swelling Skin: No Significant rash, except past surgical scars Neuro: Normal speech, sensorimotor deficits none Psych/Mental Status: Mental status NL, Mood NL Nurse was there as personnel quality assurance auditor during examination laboratory and microbiology Laboratory Tests 07/24/25 11:46 Test 07/24/25 11:46 Range/Units Serum Glucose 137 #H 74-106 mg/dL Labs and/or images reviewed: Labs reviewed by me, Image(s) reviewed by me Problem List/Assessment/Plan Problem List/Assessment/Plan Cyclic vomiting syndrome possibly due to cannabinoid use GI bleeding possibly due to erosive gastritis or hemorrhoids -full liquid -avoid cannabinoids -IV fluid -ondansetron -Protonix -CT abdomen pelvis: No acute findings -lipase negative -Stool FOBT negative -Colonoscopy 2 years ago negative for malignancy as per patient. Chest pain ruled out ACS Chest pain likely due to gastritis Hypertensive heart disease Chronic diastolic heart failure -EKG: No acute ischemic changes troponin x3 negative -Lisinopril -ECHO revealed, mild LVH, EF 55-60%, grade 1 diastolic dysfunction. Type 2 diabetes mellitus with hyperglycemia -Insulin Lantus and insulin sliding scale History of [place] with RCA stent -Aspirin -Atorvastatin -Spironolactone Renal vascular calcification or nonobstructing calculi -follow up outpatient with PCP and Urology Cannabis use disorder -counseled regarding cessation for more than 14 minutes GI prophylaxis: Pantoprazole DVT prophylaxis: SCDs Diet: Full liquid diet Goals of care discussed with the patient for more than 27 minutes: Full code status Case discussed with Dr. Stone , patient and RN Plan discussed with: Patient, Other (RN) Plan discussed with: Patient, Other (RN) My Orders My Orders Orders - JIM ARRIAGA RESIDENT Procedure Category Date Status Time * Gi Dvh Mineral Engineer CONS 07/24/25 Transmitted 12:44 Visit Coding STANDARD RES Billing Provider: DONIS STONE MD Date of Service if different f: Jul 24, 2025 Common Visit Codes: [id number] INP/OBS CARE(HIGH) JIM ARRIAGA RESIDENT Jul 24, 2025 14:57 DONIS STONE MD Jul 24, 2025 22:53
[2025-07-24 17:00] VITALS: BP 152/81; PULSE 58; RESP 18; TEMP 98; O2SAT 96
[2025-07-24 20:00] VITALS: PULSE 65; RESP 18; O2SAT 99
[2025-07-24 21:11] VITALS: BP 182/98; PULSE 65; RESP 18; TEMP 98.3; O2SAT 99
[2025-07-24] MEDS: hydrALAZINE HCL 20 MG/ML VL IV ONE (22:21)
[2025-07-25] VITALS (12 sets, daily range): BP systolic 113–154; BP diastolic 57–94; PULSE 80–107; RESP 16–100; TEMP 97.3–98.2; O2SAT 98–100
[2025-07-25] MEDS: HYDROcodone-ACET 5/325MG TAB PO PRN (00:05)
[2025-07-25] MEDS: ALBUTEROL SULF 2.5 MG/0.5ML(0.5%) NEB SOLN NEB ONE (01:26)
[2025-07-25] MEDS: ALBUTEROL SULF 2.5 MG/0.5ML(0.5%) NEB SOLN ONE (01:30)
[2025-07-25 06:53] LABS: Hematocrit 47.6 % (41.0-53.0)
[2025-07-25 06:55] LABS: Hemoglobin 16.8 g/dL (13.5-17.5); Mean Corpuscular Hemoglobin 34.4 pg (28.0-32.0); Mean Corpuscular Volume 97.3 fL (80.0-100.0); Nucleated Red Blood Cells % 0.1 %
[2025-07-25 07:26] LABS: Alanine Aminotransferase 27 U/L (7-40); Albumin 4.4 g/dL (3.2-4.8); Alkaline Phosphatase 89 U/L (46-116); Anion Gap 13 (5-15); BUN/Creatinine Ratio 11.0 (10.0-20.0); Bilirubin, Total 1.1 mg/dL (0.2-1.0); Blood Urea Nitrogen 11 mg/dL (9-23); Calcium 9.6 mg/dL (8.7-10.4); Carbon Dioxide 24 mmol/L (20-31); Chloride 104 mmol/L (98-107); Potassium 3.8 mmol/L (3.5-5.1); Sodium 141 mmol/L (136-145); Total Protein 7.3 g/dL (5.7-8.2)
[2025-07-25 07:27] LABS: Glucose 148 mg/dL (74-106)
[2025-07-25] MEDS ORDERED: DEXTROSE (50%) 50ML SYRG IV PRN (09:45)
[2025-07-25] MEDS: PANTOPRAZOLE 40 MG/10 ML VIAL INJ IV SCH (11:10)
[2025-07-25] MEDS: LACTATED RINGER'S 250 ML IV ONE (11:11)
--- NOTE | 2025-07-25 11:20 | DVHPNRES ---
Progress Note Date Seen: Jul 25, 2025 Resident Creating Document: JIM ARRIAAG RESIDENT Medical Necessity Reason Pt with a Central, PICC or Fol: No (RN) Subjective Review of Systems Patient was seen and examined at bedside. Overnight the patient required breathing treatment and he felt congested. Patient reports feeling nausea and acute abdominal pain.No other complaints reported. Patient reports: Feels worse Objective vital signs Vital Sign Date Time Temp Pulse Resp B/P (MAP) Pulse Ox O2 Delivery O2 Flow Rate FiO2 07/25/25 09:25 147/100 07/25/25 05:00 97.3 107 18 98 97.3 07/25/25 01:26 Nasal Cannula 3.0 07/25/25 01:26 32 Total Intake and Output 07/24/25 07/24/25 07/25/25 15:00 23:00 07:00 Intake Total 50 ml 250 ml Balance 50 ml 250 ml medications Current Medications Medications Dose Ordered Sig/Sarai Route Start Time Stop Time Status Last Admin Dose Admin Ondansetron HCl 4 mg Q4HP PRN IV 07/22/25 22:45 Enoxaparin Sodium 40 mg DAILY SC 07/23/25 10:00 07/25/25 09:25 40 MG Acetaminophen 650 mg Q6HR PO 07/23/25 00:00 07/25/25 05:04 650 MG Acetaminophen/ Hydrocodone Bitart 1 tab Q6HPRN PRN PO 07/23/25 02:00 07/25/25 09:25 1 TAB Atorvastatin Calcium 40 mg HS PO 07/23/25 22:00 07/24/25 21:48 40 MG Aspirin 81 mg DAILY PO 07/23/25 10:00 07/25/25 09:27 81 MG Clopidogrel Bisulfate 75 mg DAILY PO 07/23/25 10:00 07/25/25 09:26 75 MG Insulin Glargine 10 units HS SC 07/23/25 22:00 07/24/25 22:18 10 UNITS Dimethicone 40 mg BID PO 07/23/25 22:00 07/25/25 09:26 40 MG Ceftriaxone Sodium 50 ml @ 100 mls/hr DAILY@09 IV 07/24/25 09:00 07/25/25 09:24 100 MLS/HR Azithromycin 250 ml @ 125 mls/hr DAILY IV 07/24/25 10:00 07/24/25 14:30 125 MLS/HR Sodium Chloride 1,000 ml @ 100 mls/hr Q10H IV 07/23/25 10:15 07/25/25 01:41 100 MLS/HR Albuterol 1.25 mg Q4HPRN PRN NEB 07/25/25 08:45 Ipratropium [place] 0.5 mg Q4HPRN PRN NEB 07/25/25 08:45 Diagnostic Test (Pha) 1 strip ACHS 07/25/25 11:30 Insulin Human Regular ACHS SC 07/25/25 11:30 Dextrose 50 ml UD PRN IV 07/25/25 09:45 Pantoprazole Sodium 40 mg DAILY IV 07/25/25 10:00 07/25/25 11:10 40 MG Examination Pt is lying on bed General Appearance: Alert, Oriented X3, Cooperative, Mild distress HEENT: Atraumatic, Mucous membranes moist/pink Respiratory: Clear to auscultation, Normal air movement, No added sounds Cardiovascular: Regular rate, Normal S1, Normal S2, No murmurs Abdominal/ : Active bowel sounds, Soft, no distention, epigastric tenderness Extremities: No edema, Normal pulses, No tenderness/swelling Skin: No Significant rash, except past surgical scars Neuro: Normal speech, sensorimotor deficits none Psych/Mental Status: Mental status NL, Mood NL Nurse was there as safety manager during examination laboratory and microbiology Laboratory Tests 07/25/25 06:10 Test 07/25/25 06:10 Range/Units Serum Glucose 148 H 74-106 mg/dL Labs and/or images reviewed: Labs reviewed by me, Image(s) reviewed by me Problem List/Assessment/Plan Problem List/Assessment/Plan Cyclic vomiting syndrome possibly due to cannabinoid use GI bleeding possibly due to erosive gastritis or hemorrhoids -full liquid -avoid cannabinoids -IV fluid -ondansetron -Protonix -CT abdomen pelvis: No acute findings -lipase 55 and trending down. -Stool FOBT negative -Colonoscopy 2 years ago negative for malignancy as per patient. -GI consulted: Advance diet as tolerated, follow up outpatient. Chest pain ruled out ACS Chest pain likely due to gastritis Hypertensive heart disease Chronic diastolic heart failure -EKG: No acute ischemic changes troponin x3 negative -Lisinopril -ECHO revealed, mild LVH, EF 55-60%, grade 1 diastolic dysfunction. Type 2 diabetes mellitus with hyperglycemia -Insulin Lantus and insulin sliding scale History of [place] with RCA stent -Aspirin -Atorvastatin -Spironolactone Renal vascular calcification or nonobstructing calculi -follow up outpatient with PCP and Urology Cannabis use disorder -counseled regarding cessation for more than 14 minutes GI prophylaxis: Pantoprazole DVT prophylaxis: SCDs Diet: Full liquid diet Goals of care discussed with the patient for more than 27 minutes: Full code status Case discussed with Dr. Hernandez , patient and RN Plan discussed with: Patient, Other (RN) My Orders My Orders Orders - JIM ARRIAGA RESIDENT Procedure Category Date Status Time * Gi Dvh Intake Counselor CONS 07/24/25 Transmitted 12:44 Albuterol Medneb PHA 07/25/25 In Process (Ventolin Medneb) 08:45 Cont Med Neb Intial Tx RT 07/25/25 Logged 08:37 Ipratropium Medneb PHA 07/25/25 In Process (Atrovent Medneb) 08:45 Visit Coding STANDARD RES Billing Provider: DONIS HERNANDEZ MD Date of Service if different f: Jul 25, 2025 Common Visit Codes: [id number] INP/OBS CARE(HIGH) JIM ARRIAGA RESIDENT Jul 25, 2025 11:20 DONIS HERNANDEZ MD Jul 26, 2025 18:18
[2025-07-25] MEDS: ALBUTEROL SULF 2.5 MG/0.5ML(0.5%) NEB SOLN NEB PRN (12:51)
[2025-07-25] MEDS: IPRATROPIUM BROM 0.5 MG/2.5ML INH SOL NEB PRN (12:51)
[2025-07-25] MEDS: ACCU-CHEK COMFORT CURVE STRIP VI SCH (12:57)
[2025-07-25] MEDS: InsuLIN REG 1unit/0.01ml Soln (100units/ml) SC SCH (13:00)
--- NOTE | 2025-07-25 16:53 | DVHPN2 ---
Progress Note - Dictate Date Seen: Jul 25, 2025 Medical Necessity Reason Pt with a Central, PICC or Fol: No (RN) Subjective No new complaints Patient is feeling better No nausea and vomiting documented No bowel movement recorded Drug screen positive for marijuana vital signs Vital Sign Date Time Temp Pulse Resp B/P (MAP) Pulse Ox O2 Delivery O2 Flow Rate FiO2 07/25/25 16:35 98.0 105 16 126/94 (105) 99 98.0 07/25/25 12:51 Room Air 0.0 07/25/25 12:51 21 Total Intake and Output 07/24/25 07/24/25 07/25/25 15:00 23:00 07:00 Intake Total 50 ml 250 ml Balance 50 ml 250 ml medications Current Medications Medications Dose Ordered Sig/Sarai Route Start Time Stop Time Status Last Admin Dose Admin Ondansetron HCl 4 mg Q4HP PRN IV 07/22/25 22:45 Enoxaparin Sodium 40 mg DAILY SC 07/23/25 10:00 07/25/25 09:25 40 MG Acetaminophen 650 mg Q6HR PO 07/23/25 00:00 07/25/25 12:57 650 MG Acetaminophen/ Hydrocodone Bitart 1 tab Q6HPRN PRN PO 07/23/25 02:00 07/25/25 09:25 1 TAB Atorvastatin Calcium 40 mg HS PO 07/23/25 22:00 07/24/25 21:48 40 MG Aspirin 81 mg DAILY PO 07/23/25 10:00 07/25/25 09:27 81 MG Clopidogrel Bisulfate 75 mg DAILY PO 07/23/25 10:00 07/25/25 09:26 75 MG Insulin Glargine 10 units HS SC 07/23/25 22:00 07/24/25 22:18 10 UNITS Dimethicone 40 mg BID PO 07/23/25 22:00 07/25/25 09:26 40 MG Ceftriaxone Sodium 50 ml @ 100 mls/hr DAILY@09 IV 07/24/25 09:00 07/25/25 09:24 100 MLS/HR Azithromycin 250 ml @ 125 mls/hr DAILY IV 07/24/25 10:00 07/25/25 12:56 125 MLS/HR Sodium Chloride 1,000 ml @ 100 mls/hr Q10H IV 07/23/25 10:15 07/25/25 01:41 100 MLS/HR Albuterol 1.25 mg Q4HPRN PRN NEB 07/25/25 08:45 07/25/25 12:51 1.25 MG Ipratropium [place] 0.5 mg Q4HPRN PRN NEB 07/25/25 08:45 07/25/25 12:51 0.5 MG Diagnostic Test (Pha) 1 strip ACHS 07/25/25 11:30 07/25/25 12:57 1 STRIP Insulin Human Regular ACHS SC 07/25/25 11:30 07/25/25 13:00 2 UNITS Dextrose 50 ml UD PRN IV 07/25/25 09:45 Pantoprazole Sodium 40 mg DAILY IV 07/25/25 10:00 07/25/25 11:10 40 MG laboratory and microbiology Laboratory Tests 07/25/25 06:10 Test 07/25/25 06:10 Range/Units Serum Glucose 148 H 74-106 mg/dL Problems(with codes): (1) Nausea and vomiting (2) Acute abdominal pain Prognosis Assessment plan Possible cyclical vomiting syndrome related to cannabinoids Patient has a history of underlying gastritis and hemorrhoids At this time recommend conservative management Patient had a colonoscopy last year with removal of one polyp He can follow up with GI Services as an outpatient for any further GI workup if required Advance diet as tolerated Plan discussed with: Other (Elizabeth Zimmer) GORDON FOFANA MD Jul 25, 2025 16:53
[2025-07-25] MEDS: DOCUSATE SOD 100 MG CAP PO ONE (17:54)
--- NOTE | 2025-07-25 20:28 | DVHPNRES ---
Progress Note Date Seen: Jul 25, 2025 Resident Creating Document: JIM ARRIAGA RESIDENT Medical Necessity Reason Pt with a Central, PICC or Fol: No (RN) Objective vital signs Vital Sign Date Time Temp Pulse Resp B/P (MAP) Pulse Ox O2 Delivery O2 Flow Rate FiO2 07/25/25 16:35 98.0 105 16 126/94 (105) 99 98.0 07/25/25 12:51 Room Air 0.0 07/25/25 12:51 21 Total Intake and Output 07/24/25 07/24/25 07/25/25 15:00 23:00 07:00 Intake Total 50 ml 250 ml Balance 50 ml 250 ml medications Current Medications Medications Dose Ordered Sig/Sarai Route Start Time Stop Time Status Last Admin Dose Admin Ondansetron HCl 4 mg Q4HP PRN IV 07/22/25 22:45 Enoxaparin Sodium 40 mg DAILY SC 07/23/25 10:00 07/25/25 09:25 40 MG Acetaminophen 650 mg Q6HR PO 07/23/25 00:00 07/25/25 17:53 650 MG Acetaminophen/ Hydrocodone Bitart 1 tab Q6HPRN PRN PO 07/23/25 02:00 07/25/25 09:25 1 TAB Atorvastatin Calcium 40 mg HS PO 07/23/25 22:00 07/24/25 21:48 40 MG Aspirin 81 mg DAILY PO 07/23/25 10:00 07/25/25 09:27 81 MG Clopidogrel Bisulfate 75 mg DAILY PO 07/23/25 10:00 07/25/25 09:26 75 MG Insulin Glargine 10 units HS SC 07/23/25 22:00 07/24/25 22:18 10 UNITS Dimethicone 40 mg BID PO 07/23/25 22:00 07/25/25 09:26 40 MG Ceftriaxone Sodium 50 ml @ 100 mls/hr DAILY@09 IV 07/24/25 09:00 07/25/25 09:24 100 MLS/HR Azithromycin 250 ml @ 125 mls/hr DAILY IV 07/24/25 10:00 07/25/25 12:56 125 MLS/HR Sodium Chloride 1,000 ml @ 100 mls/hr Q10H IV 07/23/25 10:15 07/25/25 17:54 100 MLS/HR Albuterol 1.25 mg Q4HPRN PRN NEB 07/25/25 08:45 07/25/25 12:51 1.25 MG Ipratropium [place] 0.5 mg Q4HPRN PRN NEB 07/25/25 08:45 07/25/25 12:51 0.5 MG Diagnostic Test (Pha) 1 strip ACHS 07/25/25 11:30 07/25/25 17:54 1 STRIP Insulin Human Regular ACHS SC 07/25/25 11:30 07/25/25 17:57 2 UNITS Dextrose 50 ml UD PRN IV 07/25/25 09:45 Pantoprazole Sodium 40 mg DAILY IV 07/25/25 10:00 07/25/25 11:10 40 MG laboratory and microbiology Laboratory Tests 07/25/25 06:10 Test 07/25/25 06:10 Range/Units Serum Glucose 148 H 74-106 mg/dL Problem List/Assessment/Plan Problem List/Assessment/Plan Cyclic vomiting syndrome possibly due to cannabinoid use GI bleeding possibly due to erosive gastritis or hemorrhoids -full liquid -avoid cannabinoids -IV fluid -ondansetron -Protonix -CT abdomen pelvis: No acute findings -lipase negative -Stool FOBT negative -Colonoscopy 2 years ago negative for malignancy as per patient. Chest pain ruled out ACS Chest pain likely due to gastritis Hypertensive heart disease Chronic diastolic heart failure PNA due to gram positive or negative organism -EKG: No acute ischemic changes troponin x3 negative -Lisinopril -ECHO revealed, mild LVH, EF 55-60%, grade 1 diastolic dysfunction. iv ceftriaxone and IV azithromycin Type 2 diabetes mellitus with hyperglycemia -Insulin Lantus and insulin sliding scale History of [place] with RCA stent -Aspirin -Atorvastatin -Spironolactone Renal vascular calcification or nonobstructing calculi -follow up outpatient with PCP and Urology Cannabis use disorder -counseled regarding cessation for more than 14 minutes GI prophylaxis: Pantoprazole DVT prophylaxis: SCDs Diet: Full liquid diet Goals of care discussed with the patient for more than 27 minutes: Full code status Case discussed with Dr. Hernandez , patient and RN Plan discussed with: Patient, Other (RN) My Orders My Orders Orders - JIM ARRIAGA Procedure Category Date Status Time Albuterol Medneb PHA 07/25/25 In Process (Ventolin Medneb) 08:45 Cont Med Neb Intial Tx RT 07/25/25 Logged 08:37 Ipratropium Medneb PHA 07/25/25 In Process (Atrovent Medneb) 08:45 Complete Blood Count LAB 07/26/25 Verified 04:00 Comprehensive LAB 07/26/25 Verified Metabolic Panel 04:00 JIM ARRIAGA RESIDENT Jul 25, 2025 20:27
[2025-07-26] VITALS (8 sets, daily range): BP systolic 112–137; BP diastolic 81–93; PULSE 57–72; RESP 18–20; TEMP 97.7–98.5; O2SAT 95–99
[2025-07-26 06:49] LABS: Hematocrit 46.4 % (41.0-53.0); Hemoglobin 16.1 g/dL (13.5-17.5); Mean Corpuscular Hemoglobin 33.9 pg (28.0-32.0); Mean Corpuscular Volume 97.7 fL (80.0-100.0); Nucleated Red Blood Cells % 0.1 %
[2025-07-26 06:55] LABS: Alanine Aminotransferase 23 U/L (7-40); Albumin 4.0 g/dL (3.2-4.8); Alkaline Phosphatase 79 U/L (46-116); Anion Gap 9 (5-15); BUN/Creatinine Ratio 15.7 (10.0-20.0); Bilirubin, Total 1.1 mg/dL (0.2-1.0); Blood Urea Nitrogen 13 mg/dL (9-23); Calcium 9.0 mg/dL (8.7-10.4); Carbon Dioxide 24 mmol/L (20-31); Chloride 107 mmol/L (98-107); Potassium 3.5 mmol/L (3.5-5.1); Sodium 140 mmol/L (136-145); Total Protein 6.7 g/dL (5.7-8.2)
[2025-07-26 06:57] LABS: Glucose 119 mg/dL (74-106)
--- NOTE | 2025-07-26 12:58 | DVHPNRES ---
Progress Note Date Seen: Jul 26, 2025 Resident Creating Document: JIM ARRIAGA RESIDENT Medical Necessity Reason Pt with a Central, PICC or Fol: No (RN) Subjective Review of Systems The patient was seen and examined at bedside today. The patient reports feeling nauseous, however he did not vomit. He tolerated the food as per care activity notes. However patient keeps complaining of nausea and abdominal pain. No other complaints reported. Objective vital signs Vital Sign Date Time Temp Pulse Resp B/P (MAP) Pulse Ox O2 Delivery O2 Flow Rate FiO2 07/26/25 09:00 97.8 66 19 127/86 (100) 95 97.8 07/26/25 08:08 Room Air* 0 21 medications Current Medications Medications Dose Ordered Sig/Sarai Route Start Time Stop Time Status Last Admin Dose Admin Ondansetron HCl 4 mg Q4HP PRN IV 07/22/25 22:45 Enoxaparin Sodium 40 mg DAILY SC 07/23/25 10:00 07/26/25 09:17 40 MG Acetaminophen 650 mg Q6HR PO 07/23/25 00:00 07/26/25 12:30 650 MG Acetaminophen/ Hydrocodone Bitart 1 tab Q6HPRN PRN PO 07/23/25 02:00 07/25/25 20:55 1 TAB Atorvastatin Calcium 40 mg HS PO 07/23/25 22:00 07/25/25 20:52 40 MG Aspirin 81 mg DAILY PO 07/23/25 10:00 07/26/25 09:10 81 MG Clopidogrel Bisulfate 75 mg DAILY PO 07/23/25 10:00 07/26/25 09:09 75 MG Insulin Glargine 10 units HS SC 07/23/25 22:00 07/25/25 21:02 10 UNITS Dimethicone 40 mg BID PO 07/23/25 22:00 07/26/25 09:09 40 MG Ceftriaxone Sodium 50 ml @ 100 mls/hr DAILY@09 IV 07/24/25 09:00 07/26/25 09:12 100 MLS/HR Azithromycin 250 ml @ 125 mls/hr DAILY IV 07/24/25 10:00 07/26/25 10:23 125 MLS/HR Sodium Chloride 1,000 ml @ 100 mls/hr Q10H IV 07/23/25 10:15 07/26/25 09:17 100 MLS/HR Albuterol 1.25 mg Q4HPRN PRN NEB 07/25/25 08:45 07/25/25 12:51 1.25 MG Ipratropium [place] 0.5 mg Q4HPRN PRN NEB 07/25/25 08:45 07/25/25 12:51 0.5 MG Diagnostic Test (Pha) 1 strip ACHS 07/25/25 11:30 07/26/25 11:05 1 STRIP Insulin Human Regular ACHS SC 07/25/25 11:30 07/26/25 11:08 4 UNITS Dextrose 50 ml UD PRN IV 07/25/25 09:45 Pantoprazole Sodium 40 mg DAILY IV 07/25/25 10:00 07/26/25 09:10 40 MG Examination Pt is lying on bed General Appearance: Alert, Oriented X3, Cooperative, Mild distress HEENT: Atraumatic, Mucous membranes moist/pink Respiratory: Clear to auscultation, Normal air movement, No added sounds Cardiovascular: Regular rate, Normal S1, Normal S2, No murmurs Abdominal/ : Active bowel sounds, Soft, no distention, no tenderness Extremities: No edema, Normal pulses, No tenderness/swelling Skin: No Significant rash, except past surgical scars Neuro: Normal speech, sensorimotor deficits none Psych/Mental Status: Mental status NL, Mood NL Nurse was there as welder and fitter during examination laboratory and microbiology Laboratory Tests 07/26/25 05:22 Test 07/26/25 05:22 Range/Units Serum Glucose 119 H 74-106 mg/dL Labs and/or images reviewed: Labs reviewed by me, Image(s) reviewed by me Problem List/Assessment/Plan Problem List/Assessment/Plan Cyclic vomiting syndrome possibly due to cannabinoid use GI bleeding possibly due to erosive gastritis or hemorrhoids -full liquid -avoid cannabinoids -IV fluid -ondansetron -Protonix -CT abdomen pelvis: No acute findings -lipase 55 and trending down. -Stool FOBT negative -Colonoscopy 2 years ago negative for malignancy as per patient. -GI consulted: Advance diet as tolerated, follow up outpatient. Chest pain ruled out ACS Chest pain likely due to gastritis Hypertensive heart disease Chronic diastolic heart failure -EKG: No acute ischemic changes troponin x3 negative -Lisinopril -ECHO revealed, mild LVH, EF 55-60%, grade 1 diastolic dysfunction. Type 2 diabetes mellitus with hyperglycemia -Insulin Lantus and insulin sliding scale History of [place] with RCA stent -Aspirin -Atorvastatin -Spironolactone Renal vascular calcification or nonobstructing calculi -follow up outpatient with PCP and Urology Cannabis use disorder -counseled regarding cessation for more than 14 minutes GI prophylaxis: Pantoprazole DVT prophylaxis: SCDs Diet: Full liquid diet Goals of care discussed with the patient for more than 27 minutes: Full code status Case discussed with Dr. Hernandez , patient and RN Plan discussed with: Patient, Other (RN) Visit Coding STANDARD RES Billing Provider: DONIS HERNANDEZ MD Date of Service if different f: Jul 26, 2025 Common Visit Codes: 59801-[id number] INP/OBS CARE(HIGH), 28421-FCY/OBS DISCH DAY >30min JIM ARRIAGA RESIDENT Jul 26, 2025 12:58
[2025-07-26] MEDS ORDERED: ONDA-155 PO (13:34)
[2025-07-26] MEDS ORDERED: AZIT-185 PO (13:34)
--- NOTE | 2025-07-26 17:16 | DVHDSRES ---
Discharge Summary Date of Admission Resident Creating Document: JIM ARRIAGA Jul 22, 2025 at 22:36 Date of Discharge: Jul 26, 2025 Admitting Diagnosis Cyclic vomiting syndrome due to cannabinoid Labs/Diagnostic Data: Laboratory Results Test 07/26/25 16:15 07/26/25 05:22 07/25/25 06:10 07/23/25 13:33 POC Glucose 116 mg/dl (70-106) White Blood Count 8.6 10^3/uL (4.4-10.8) Red Blood Count 4.75 10^6/uL (4.5-5.90) Hemoglobin 16.1 g/dL (13.5-17.5) Hematocrit 46.4 % (41.0-53.0) Mean Corpuscular Volume 97.7 fL (80.0-100.0) Mean Corpuscular Hemoglobin 33.9 pg (28.0-32.0) Mean Corpuscular Hemoglobin Concent 34.7 g/dL (32.0-36.0) Red Cell Distribution Width 14.2 % (11.8-14.3) Platelet Count 268 10^3/uL (140-450) Mean Platelet Volume 8.0 fL (6.9-10.8) Neutrophils (%) (Auto) 56.8 % (37.0-80.0) Lymphocytes (%) (Auto) 30.3 % (10.0-50.0) Monocytes (%) (Auto) 9.4 % (0.0-12.0) Eosinophils (%) (Auto) 3.0 % (0.0-7.0) Basophils (%) (Auto) 0.5 % (0.0-2.0) Neutrophils # (Auto) 4.9 10 ^3/uL (1.6-8.6) Lymphocytes # (Auto) 2.6 10 ^3/uL (0.4-5.4) Monocytes # (Auto) 0.8 10 ^3/uL (0-1.3) Eosinophils # (Auto) 0.3 10 ^3/uL (0-0.8) Basophils # (Auto) 0 10 ^3/uL (0-0.2) Nucleated Red Blood Cells 0.1 % Sodium Level 140 mmol/L (136-145) Potassium Level 3.5 mmol/L (3.5-5.1) Chloride Level 107 mmol/L (98-107) Carbon Dioxide Level 24 mmol/L (20-31) Anion Gap 9 (5-15) Blood Urea Nitrogen 13 mg/dL (9-23) Creatinine 0.83 mg/dL (0.700-1.30) Glomerular Filtration Rate Calc 99 mL/min (>90) BUN/Creatinine Ratio 15.7 (10.0-20.0) Serum Glucose 119 mg/dL (74-106) Calcium Level 9.0 mg/dL (8.7-10.4) Total Bilirubin 1.1 mg/dL (0.2-1.0) Aspartate Amino Transferase (AST) 18 U/L (13-40) Alanine Aminotransferase (ALT) 23 U/L (7-40) Alkaline Phosphatase 79 U/L (46-116) Total Protein 6.7 g/dL (5.7-8.2) Albumin 4.0 g/dL (3.2-4.8) Lipase 53 U/L (12-53) Stool Occult Blood Negative (Negative) Stool Occult Blood Sample #3 (Negative) Test 07/23/25 03:23 07/23/25 00:24 07/22/25 21:56 07/22/25 17:13 Hemoglobin A1c 7.9 % A1C (<5.7) Troponin I High Sensitivity 12 ng/L (</=54) Prothrombin Time 10.1 sec (9.3-11.8) Prothrombin Time INR 0.95 (0.9-1.15) Activated Partial Thromboplast Time 28.5 SEC (24.5-34.5) B-Type Natriuretic Peptide 12.32 pg/mL (0-100) Thyroid Stimulating Hormone (TSH) 2.80 uIU/mL (0.55-4.78) Urine Opiates Screen Neg (NEGATIVE) Urine Fentanyl Screen Neg (NEGATIVE) Urine Barbiturates Screen Neg (NEGATIVE) Urine Phencyclidine Screen Neg (NEGATIVE) Urine Amphetamines Screen Neg (NEGATIVE) Urine Benzodiazepines Screen Neg (NEGATIVE) Urine Cocaine Screen Neg (NEGATIVE) Urine Cannabinoids Screen Pos (NEGATIVE) Test 07/22/25 17:12 Urine Color Yellow (Yellow) Urine Clarity Clear (Clear) Urine pH 5.5 (5.0-9.0) Urine Specific [place] 1.024 (1.001-1.035) Urine Protein Negative (Negative) Urine Ketones Negative (Negative) Urine Blood 1+ /uL (Negative) Urine Nitrite Negative (Negative) Urine Bilirubin Negative (Negative) Urine Urobilinogen Normal mg/dL (Negative) Urine Leukocyte Esterase Negative /uL (Negative) Urine RBC <1 /hpf (0 - 3) Urine Microscopic WBC < 1 /HPF (0-3) Urine Squamous Epithelial Cells Few /hpf (<5) Urine Bacteria None seen /hpf (None Seen) Urine Mucus Few (None Seen) Urine Glucose 3+ mg/dL (Normal) Other Laboratory Tests 07/26/25 05:22 Brief Hx & Hospital Course: Mr Marques Rangel, a 60-year-old male with past medical history of [id number] diabetes mellitus, hypertension compliance with medications, peptic ulcer disease, myocardial infarction with right coronary artery stent placed, stroke with residual left-sided weakness presented to the ED with the complaints of vomiting every morning associated with abdominal pain since last 1 month. Abdominal pain mostly on the right and left lower quadrants and radiates to whole abdomen. He reports having occasional bright red stools. He has done colonoscopy 2 years ago in [place] with polyp removed, no other significant abnormality detected. He also reports having burning chest pain, which he attributes to GERD. Denies any burning sensation during urination, however he reports having urinary frequency. He denied any constipation. He denies any chest pain, shortness of breath, fever, weight loss, recent travel history or sick contacts or any other complaints. He possibly had done an angiogram in [facility], he can not recall the results. Past medical history: As above Past surgical history: as above Medications: Amlodipine, Plavix, metformin, metoprolol succinate, pantoprazole, rosuvastatin Brief hospital course: On further evaluation, the patient was diagnosed with cyclic vomiting syndrome due to cannabinoid use, he was treated with IV fluid IV ondansetron, IV Protonix. Patient has occasional per rectal bleeding, FOBT was done and GI bleed ruled out. GI consult was appreciated, no procedures were recommended. Patient's diet was advanced as tolerated. He complained of chest pain, ACS was ruled out. His BP was controlled with lisinopril. Type 2 diabetes mellitus with hyperglycemia was treated with insulin Lantus and insulin sliding scale. All the treatment plan and progress was discussed with the daughter throughout the patient's stay during the hospital, on the day of discharge the treatment and follow up recommendations were discussed with the patient's daughter and son-in-law in details. cooking instructor was used to explain all the plans with the patient. On the day of discharge, patient was hemodynamically stable, was tolerating diet and verbalized understanding of the discharge plan. Pt is lying on bed General Appearance: Alert, Oriented X3, Cooperative, Mild distress HEENT: Atraumatic, Mucous membranes moist/pink Respiratory: Clear to auscultation, Normal air movement, No added sounds Cardiovascular: Regular rate, Normal S1, Normal S2, No murmurs Abdominal/ : Active bowel sounds, Soft, no distention, no tenderness Extremities: No edema, Normal pulses, No tenderness/swelling Skin: No Significant rash, except past surgical scars Neuro: Normal speech, sensorimotor deficits none Psych/Mental Status: Mental status NL, Mood NL Nurse was there as supervisor engraving during examination Operations or Procedures PATIENT: MARQUES RANGEL ACCT: [id number] UNIT: [id number] : 1965 LOC: OVERFLOW ROOM / BED: [facility] / A AGE / SEX: 60 / M ADM STATUS: ADM IN SERVICE [id number] ORDERING PHYSICIAN: JOE RANDOLPH PROCEDURE(s): CXR1 - CHEST XRAY 1 VIEW REASON: chest pain ORDER NUMBER(s): [id number], ACCESSION NUMBER(s): [id number] CHEST RADIOGRAPH INDICATION: chest pain TECHNIQUE: Single frontal view of the chest was obtained COMPARISON: None FINDINGS: Lines and Tubes: None Lungs: Hazy density left lower lung field may represent a lingular airspace disease consider lateral chest firm film for further evaluation or CT chest. Pleura: No effusion. No pneumothorax. Cardiomediastinal contours: Unremarkable Bones: No acute osseous abnormality. IMPRESSION: 1. Increased density left lower lung field with some silhouetting of the left heart border. May represent lingular infiltrate. If consistent with clinical setting and patient's symptomatology consider lateral chest film or CT of the chest for further evaluation.PATIENT: MARQUES RANGELACCT: [id number] UNIT : [id number] : 1965 LOC: ER ROOM / BED: / AGE / SEX: 60 / M ADM STATUS: REG ER SERVICE [id number] ORDERING PHYSICIAN: MARCOS DAVALOS MD PROCEDURE(s): ABPL - CT AB PEL WO CON-NO ORAL OR IV REASON: colitis ORDER NUMBER(s): [id number], ACCESSION NUMBER(s): [id number] EXAM: CT CT AB PEL WO CON-NO ORAL OR IV History: colitis Comparison Study: None TECHNIQUE: Multidetector CT of the abdomen was performed from lung bases to pubic symphysis. Imaging was performed without IV contrast. Axial, coronal and sagittal multiplanar reformats were obtained from the axial data set by the technologist. Radiation Dose Information: CT Dose: CTDI volume is 9.4 mGy. Dose-length product is 513 mGy*cm FINDINGS: Evaluation of solid organs is limited due to lack of intravenous contrast use. FINDINGS: Lung Bases: No acute or significant lung base finding. Normal heart size. No pleural or pericardial effusion. Liver: The liver is normal in size. No focal lesions. Gallbladder and Biliary Tree: Unremarkable Spleen: Unremarkable Pancreas: The pancreas is grossly normal in appearance. Adrenal Glands: Unremarkable Kidneys: There is either a 1 cm right-sided renal vascular calcification or an nonobstructing calculus present. Bladder: Grossly unremarkable for degree of distention. Bowel: The stomach is grossly normal in appearance. Small bowel and colon are normal in caliber and distribution. The appendix is not visualized; however, no secondary findings of acute appendicitis identified. Ascites: Absent Lymphadenopathy: No mesenteric, retroperitoneal or periportal lymphadenopathy. Abdominal Wall and Mesentery: Unremarkable. Vasculature: The visualized abdominal aorta is normal in size and caliber. Evaluation of abdominal and pelvic vessels is limited due to lack of intravenous contrast. Pelvic Organs: Unremarkable Musculoskeletal: No aggressive focal bony lesions, acute fractures or dislocation. Soft tissues: Unremarkable IMPRESSION: 1. No acute intra-abdominal or pelvic disease. 2. There is either a 1 cm right-sided renal vascular calcification or a nonobstructing calculus. Condition at Discharge: Stable Final Diagnosis/Problems List Cyclic vomiting syndrome possibly due to cannabinoid use GI bleeding possibly due to erosive gastritis or hemorrhoids Chest pain ruled out ACS Chest pain likely due to gastritis Hypertensive heart disease Chronic diastolic heart failure Type 2 diabetes mellitus with hyperglycemia History of [place] with RCA stent Cannabis use disorder Renal vascular calcification or nonobstructing calculi Discharge Disposition: Home Discharge Instruct/Medications Scheduled Amlodipine Besylate (Amlodipine Besylate), 5 MG PO DAILY, (Reported) Aspirin (Aspirin 81), 81 MG PO DAILY, (Reported) Azithromycin (Zithromax Tablet), 500 MG PO DAILY Clopidogrel Bisulfate (Clopidogrel), 75 MG PO DAILY, (Reported) Metformin Hydrochloride (Metformin Hcl), 1,000 MG PO DAILY, (Reported) Metoprolol Tartrate (Lopressor), 1 TAB PO DAILY, (Reported) Pantoprazole Sodium Sesquihydr (Protonix), 40 MG PO BID, (Reported) Rosuvastatin Calcium (Crestor), 1 TAB PO DAILY, (Reported) Scheduled PRN Ondansetron HCl (Ondansetron), 4 MG PO Q8HP PRN Discontinued Medications Metoprolol Succinate (Metoprolol Succinate Er), 25 MG PO DAILY, (Reported) Discontinued Reason: Prescription changed Discharge Statement: "Patient was advised to return to the ER or call 911 if any headaches, dizziness, shortness of breath, chest pain, abdominal pain, bleeding, fevers, or worsening of medical condition. Patient was counseled about treatment plan, medications, possible side effects, patientverbalized understanding. All questions were answered to the best of my ability. This discharge took greater then 30 minutes in planning, reviewing documentation, counseling the patient, and discussing with other team members." ASSESSMENT ASSESSMENT Assessment Visit Coding STANDARD RES Billing Provider: DONIS STONE MD Date of Service if different f: Jul 26, 2025 Common Visit Codes: 66948-KLZ/OBS DISCH DAY >30min JIM ARRIAGA Jul 26, 2025 17:16 DONIS STONE MD Jul 26, 2025 18:19
[2025-07-26] MEDS ORDERED: SUCR1TAB31 OR (18:31)
[2025-07-26] MEDS ORDERED: PANT40T PO (18:32)
== END 2025-07-26 18:59 | disposition home or self-care (01) | DRG 241 ==
LOC: ER 15:18 → OVERFLOW 22:36 → EAST 07-24 14:19
PROVIDERS: ADMIT Internal Medicine; ATTEND Internal Medicine
DX: K29.01 Acute gastritis with bleeding (principal); I11.0 Hypertensive heart disease with heart failure; I69.354 Hemiplegia and hemiparesis following cerebral infarction affecting left non-dominant side; I50.32 Chronic diastolic (congestive) heart failure; E66.01 Morbid (severe) obesity due to excess calories; E11.65 Type 2 diabetes mellitus with hyperglycemia; E78.5 Hyperlipidemia, unspecified; F12.929 Cannabis use, unspecified with intoxication, unspecified; K64.9 Unspecified hemorrhoids; K52.9 Noninfective gastroenteritis and colitis, unspecified; Z87.11 Personal history of peptic ulcer disease; I25.2 Old myocardial infarction; Z68.28 Body mass index [BMI] 28.0-28.9, adult
CPT/HCPCS: 36415; 71045; 74176; 80053; 80307; 81001; 82270; 82962; 83036; 83690; 83880; 84443; 84484; 85025; 85610; 85730; 93005; 93306; 94640; 96372; 96374; 96375; G0378; J1815; J2405; J2470